=== PATIENT | female | born 1995 | race American Indian/Alaskan Native ===

== ENCOUNTER 2018-09-26 13:52 | Emergency (ER) | payer SELFPAY ==
[2018-09-26 14:08] VITALS: BP 157/99
--- NOTE | 2018-09-26 14:10 | Emergency Department Report ---
Chief Complaint: Back Pain/Injury Stated Complaint: BACK PAIN/HEADACHE/DIFFICULTY SWOLLOWING Time Seen by Provider: 09/26/18 14:04 - HPI History of Present Illness: This is a 22 y.o. female that presents with sore throat, headache, and low back pain. - Exam Vital Signs: Vital Signs 09/26/18 14:04 Temperature 98.4 F Pulse Rate 71 Respiratory 18 Rate Blood Pressure 157/99 O2 Sat by Pulse 100 Oximetry MSE screening note: Focused history and physical exam performed. Due to findings the following was ordered: labs ACC for further evaluation ED Disposition for MSE Condition: Stable
[2018-09-26 15:02] LABS: Color,Urine Amber (Yellow)
[2018-09-26 15:03] LABS: Bilirubin,Urine NEG (Negative); Blood,Urine NEG (Negative); Mucus,Urine 3+ /HPF; Protein,Urine <15 mg/dL mg/dL (Negative); Urobilinogen,Urine < 2.0 mg/dL (<2.0)
[2018-09-26 15:05] LABS: HCG Qualitative,Urine Negative (Negative)
--- NOTE | 2018-09-26 17:11 | Emergency Department Report ---
- General Chief Complaint: Back Pain/Injury Stated Complaint: BACK PAIN/HEADACHE/DIFFICULTY SWOLLOWING Time Seen by Provider: 09/26/18 14:04 Source: patient Mode of arrival: Ambulatory Limitations: No Limitations - History of Present Illness Initial Comments: Pt is a 22 yo female who presents to the ED with c/o a sore throat that began last night. The patient has also had congestion, mild frontal REEDER, and rhinorrhea. She denies any fever, sick contacts, SOB, or cough. The patient states she has a hx of seasonal allergies to pollen. She states she took one benadryl tablet and aleve with some relief. The patient is also c/o right lower back pain that began a couple of days ago. She states she believes she slept wrong. She denies any injury, heavy lifting, fall, trauma, weakness, numbness, urinary sx, or any other sx. She states this has happened before once previously. - Related Data Previous Rx's Medication Instructions Recorded Last Taken Type Cetirizine HCl [ZyrTEC] 10 mg PO DAILY #30 tab.rapdis 09/26/18 Unknown Rx Cyclobenzaprine [Flexeril 10 MG 10 mg PO QHS PRN #10 tablet 09/26/18 Unknown Rx TAB] Fluticasone [Flonase] 1 spray NS QDAY #1 bottle 09/26/18 Unknown Rx Ibuprofen [Motrin 600 MG tab] 600 mg PO Q8H PRN #20 tablet 09/26/18 Unknown Rx Allergies Allergy/AdvReac Type Severity Reaction Status Date / Time No Known Allergies Allergy Unverified 06/08/18 17:01 ED Review of Systems ROS: Stated complaint: BACK PAIN/HEADACHE/DIFFICULTY SWOLLOWING Other details as noted in HPI Comment: All other systems reviewed and negative ED Past Medical Hx - Past Medical History Previous Medical History?: No - Surgical History Additional Surgical History: tonsilectomy - Social History Smoking Status: Never Smoker Substance Use Type: None - Medications Home Medications: Home Medications Medication Instructions Recorded Confirmed Last Taken Type Cetirizine HCl [ZyrTEC] 10 mg PO DAILY #30 tab.rapdis 09/26/18 Unknown Rx Cyclobenzaprine [Flexeril 10 MG 10 mg PO QHS PRN #10 tablet 09/26/18 Unknown Rx TAB] Fluticasone [Flonase] 1 spray NS QDAY #1 bottle 09/26/18 Unknown Rx Ibuprofen [Motrin 600 MG tab] 600 mg PO Q8H PRN #20 tablet 09/26/18 Unknown Rx ED Physical Exam - General Limitations: No Limitations General appearance: alert, in no apparent distress - Head Head exam: Present: atraumatic, normocephalic - Eye Eye exam: Present: normal appearance - ENT ENT exam: Present: other (edema and mild erythema of the nasal turbinates with some crusted mucus drainage, no sinus TTP bilaterally, very mild posterior oropharynx erythema, no tonsillar hypertrophy or exudates, uvula is midline) - Respiratory Respiratory exam: Present: normal lung sounds bilaterally. Absent: respiratory distress, wheezes, rales, rhonchi, stridor, chest wall tenderness, accessory muscle use, decreased breath sounds, prolonged expiratory - Cardiovascular Cardiovascular Exam: Present: regular rate, normal rhythm, normal heart sounds. Absent: systolic murmur, rubs, gallop - GI/Abdominal GI/Abdominal exam: Present: soft. Absent: distended, tenderness - Back Exam Back exam: Present: normal inspection, full ROM, paraspinal tenderness. Absent: CVA tenderness (R), CVA tenderness (L), vertebral tenderness (mild TTP of the right lumbar paraspinal muscles, no midline C-spine, T-spine, or L-spine tenderness, no step offs, no deformities) - Neurological Exam Neurological exam: Present: alert, oriented X3, CN II-XII intact, normal gait, other (equal studio director strength, 5/5 strength in the BLE/BUE, no focal neuro deficit). Absent: motor sensory deficit - Skin Skin exam: Present: warm, dry, intact ED Course Vital Signs 09/26/18 14:04 Temperature 98.4 F Pulse Rate 71 Respiratory 18 Rate Blood Pressure 157/99 O2 Sat by Pulse 100 Oximetry ED Medical Decision Making - Lab Data Laboratory Results - last 24 hr 09/26/18 14:17 Urine Color Skylar Urine Turbidity Clear Urine pH 5.0 Ur Specific Perry 1.029 Urine Protein <15 mg/dl Urine Glucose (UA) Neg Urine Ketones Neg Urine Blood Neg Urine Nitrite Neg Urine Bilirubin Neg Urine Urobilinogen < 2.0 Ur Leukocyte Esterase Neg Urine WBC (Auto) 2.0 Urine RBC (Auto) 1.0 U Epithel Cells (Auto) 6.0 Urine Mucus 3+ Urine HCG, Qual Negative Vital Signs 09/26/18 14:04 Temperature 98.4 F Pulse Rate 71 Respiratory 18 Rate Blood Pressure 157/99 O2 Sat by Pulse 100 Oximetry repeat vitals: BP 130/97, 100% on RA, HR 66 bmp, RR 20 - Medical Decision Making Pt is a 22 yo female who presents to the ED with c/o a sore throat that began last night. The patient has also had congestion, mild frontal REEDER, and rhinorrhea. She denies any fever, sick contacts, SOB, or cough. The patient states she has a hx of seasonal allergies to pollen. She states she took one benadryl tablet and aleve with some relief. Rapid strep is negative. Examination is consistent with allergies. Will give pt zyrtec and flonase. Advised to follow up with her PCP in the next 2-3 days. Return to the ED for any new or worsening symptoms. The patient is also c/o right lower back pain that began a couple of days ago. She states she believes she slept wrong. She denies any injury, heavy lifting, fall, trauma, weakness, numbness, urinary sx, or any other sx. She states this has happened before once previously. No midline tenderness, FROM, normal gait, no neuro deficit. Mild right lumbar paraspinal muscular TTP. Advised pt to follow up with her PCP in the next 2 days. will give anti-inflammatory and short course of muscle relaxer. Advised to only use muscle relaxer as needed at night and to not drive or operate heavy machinery while taking. Discussed return to the ED for any new or worsening symptoms. - Differential Diagnosis URI, Seasonal allergies, Strep throat, viral syndrome Critical care attestation.: If time is entered above; I have spent that time in minutes in the direct care of this critically ill patient, excluding procedure time. ED Disposition Clinical Impression: Seasonal allergies Strain of lumbar paraspinal muscle Qualifiers: Encounter type: initial encounter Qualified Code(s): S39.012A - Strain of muscle, fascia and tendon of lower back, initial encounter Disposition: TO HOME OR SELFCARE Is pt being admited?: No Does the pt Need Aspirin: No Condition: Stable Instructions: Muscle Strain (ED), Allergies (ED) Additional Instructions: Follow up with your primary care doctor in the next two days. Take medication as prescribed. Only take muscle relaxer at night as needed for muscle spasm and do not drive or operate heavy machinery. Return to the emergency room for any new or worsening symptoms. Prescriptions: Cyclobenzaprine [Flexeril 10 MG TAB] 10 mg PO QHS PRN #10 tablet PRN Reason: Muscle Spasm Fluticasone [Flonase] 1 spray NS QDAY #1 bottle Ibuprofen [Motrin 600 MG tab] 600 mg PO Q8H PRN #20 tablet PRN Reason: Pain Cetirizine HCl [ZyrTEC] 10 mg PO DAILY #30 tab.rapdis Referrals: HAMMAD PECK MD [Primary Care Provider] - 2-3 Days Forms: Work/School Release Form(ED) Time of Disposition: 17:55 Print Language: [id number]
== END 2018-09-26 20:02 | disposition home or self-care (01) ==
LOC: ED 13:52
DX: S39.012A Strain of muscle, fascia and tendon of lower back, initial encounter (principal); J30.1 Allergic rhinitis due to pollen; Z90.89 Acquired absence of other organs; X58.XXXA Exposure to other specified factors, initial encounter; Y93.89 Activity, other specified; Y92.89 Other specified places as the place of occurrence of the external cause; Y99.8 Other external cause status
CPT/HCPCS: 81001; 81025; 99283